=== PATIENT | female | born 1970 | race Caucasian/White ===

== ENCOUNTER → 2017-05-18 | Day surgery (SDC) | payer BC ==
[~2017-05-18] VITALS: Ht 157.5 cm; Wt 87.0 kg
[~2017-05-18] MED LIST: *MEPERIDINE 25 MG INJ VIAL PERIprocedural Use ONLY ONE; *morphine SULFATE 10 MG/ML PERIprocedure ONLY ONE; ACETAMINOPHEN/HYDROcodone 325 MG/5 MG TAB PO PRN; ACYC800T PO; ALPR0.25 PO; CHLORHEXIDINE GLUCONATE 2 % 1 PACK (2 CLOTHS) TOPICAL PRN; DEXAMETHASONE SOD PHOS 4 MG/ML VIAL IV ONE; DIFL500T PO; DO NOT ADM ANY ANTICOAGULANT DRUGS PRN; LACTATED RINGER'S 1000 ML IV PRN; LEVO500T8 PO; LIDOCAINE 1%/EPINEPHrine 1:100,000 SOLN 20 ML VIAL ONE; METOPROLOL TARTRATE 25 MG TAB PO PRN; ONDANSETRON HCL 4 MG/2 ML VIAL IV PUSH ONE; POVIDONE IODINE 5% (ANTISEPSIS KIT) 4 APPLICATIONS EACH NARE PRN; PROPOFOL 200 MG/20 ML AMP IV ONE; ROCURONIUM INJ 50 MG/5 ML SYRINGE IV PUSH ONE; SODIUM CHLORID 0.9% 500 ML IV PRN; SUGAMMADEX SODIUM 200 MG/2 ML VIAL IV PUSH ONE; TRIA.1%T TOP; TRIA37.53 PO; Z.0.NO CURRENT MEDS; ceFAZolin INJ 1,000 MG VIAL IV ONE; ceFAZolin INJ 1,000 MG VIAL ONE; metroNIDAZOLE 500 MG INJ 100 ML IV ONE
--- NOTE | 2017-05-18 11:53 | MH ---
cc: LENNY TOBIAS KETUL TOLLAND, JOHN T. M.D. PASRICHA, SUNIL P. M.D. DATE OF ADMISSION 05/18/2017 DATE OF 1970 CHIEF COMPLAINT Posterior rectal abscess. HISTORY OF PRESENT ILLNESS This patient was seen by me originally on February 01, 2017 with an abnormal finding on a CT scan. She was sent over by Dr. Tobias and Dr. Lang for a right posterior 4 cm cystic area in the right posterior position. It extended from the right posterior wall of the rectum to the right ischiorectal fat and across to the midline. I recommended conservative therapy for this. She was having no pain, no symptoms whatsoever. This was found on a CT scan for abdominal discomfort. 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 This was a stable nodule. The CT in mid April showed again a 5 cm area posterior to the lower rectum and anus. It appeared possibly cystic. For this reason she returned to Dr. Lang who referred her to Dr. Bhavya Banegas and she underwent ultrasound biopsy last Monday, about 8 days ago. About 4 days after that she developed severe rectal pain with fevers and chills and yesterday was instructed to go to the emergency department. She was seen in the emergency department at [facility] and they contacted me yesterday afternoon and I suggested that she come to my office for evaluation so I could examine her. She came this morning and a repeat CT scan that was done yesterday was reviewed which appeared to be a posterior rectal abscess. This showed an increased organization of perirectal fluid collection of concern for an abscess which was larger than previously, mildly loculated, most of this to the right of the midline. On exam in the office I could palpate tenderness in the right posterior perianal skin and digital rectal examination revealed fullness of the right posterior rectal area. The area was anesthetized with about 9 cc of 1% Xylocaine with epinephrine and incision and drainage was attempted with some blood drainage but no actual pus or full drainage of this abscess area. For this reason she is going to be admitted as an outpatient for exam under anesthesia and incision and drainage of what appears to be a right posterior rectal abscess. PAST MEDICAL HISTORY, SOCIAL HISTORY, REVIEW OF SYSTEMS Otherwise negative. ALLERGIES 1. PENICILLIN. 2. ERYTHROMYCIN. MEDICATIONS Medications include Levaquin and Flagyl at this time as well as hydrocodone, and she takes Symax Duotab. FAMILY HISTORY She does have a family history of colon cancer and colon polyps. PHYSICAL EXAMINATION GENERAL: A well-developed, well-nourished female in acute distress with anal pain. SKIN: Warm and dry. HEENT: Extraocular muscles intact. NECK: Supple. CHEST: Clear. HEART: S1, S2 is heard. ABDOMEN: Obese, soft, nontender. No masses. RECTAL: Inspection is within normal limits. Digital exam reveals tenderness and bulging in the right posterior position. Attempted incision and drainage does not reveal any purulent drainage. EXTREMITIES: Range of motion is within normal limits. NEUROLOGIC: Grossly normal. IMPRESSION Probable 5.8 cm right posterior ischiorectal abscess. PLAN Recommend incision and drainage and exam under anesthesia. I have explained all the risks and benefits to the patient. She understands and wishes to proceed. We will do this, this afternoon. MD RANDY Azevedo/MELISSA /9:55 AM /11:14 AM
[2017-05-18 14:41] LABS: AUTOMATED NEUTROPHIL # 10.6 TH/MM3 (1.8-7.7); BASOPHIL % 0.2 % (0.0-2.0); EOSINOPHIL % 0.2 % (0.0-4.0); HEMATOCRIT 37.6 % (35.0-46.0); HEMOGLOBIN 13.2 GM/DL (11.6-15.3); LYMPHOCYTE # 0.6 TH/MM3 (1.0-4.8); MEAN CELL VOLUME 90.6 FL (80.0-100.0); MEAN CORPUSCULAR HEMOGLOBIN 31.7 PG (27.0-34.0); MEAN PLATELET VOLUME 6.8 FL (7.0-11.0); MONO % 7.1 % (0.0-8.0); MONOCYTE # 0.9 TH/MM3 (0-0.9); NEUT % 87.5 % (16.0-70.0); PLATELET COUNT 387 TH/MM3 (150-450); RED BLOOD COUNT 4.14 MIL/MM3 (4.00-5.30); RED CELL DISTRIBUTION WIDTH 12.3 % (11.6-17.2); WHITE BLOOD COUNT 12.1 TH/MM3 (4.0-11.0)
[2017-05-18 17:10] VITALS: BP 126/68; PULSE 64; RESP 18; TEMP 97.8; O2SAT 99
--- NOTE | 2017-05-19 05:57 | MP ---
cc: LENNY TOBIAS KETUL TOLLAND,ROBINA MORENO M.D., M.D. DATE OF PROCEDURE 05/18/2017 PREOPERATIVE DIAGNOSIS Right posterior ischiorectal abscess. POSTOPERATIVE DIAGNOSIS Right posterior ischiorectal abscess and supralevator abscess PROCEDURE Incision and drainage of right posterior supralevator abscess ANESTHESIA General endotracheal. SURGEON Dr. Gutiérrez OPERATIVE FINDINGS This patient was originally referred to me by Dr. Lang in January of 2017. At that time she had a CT scan from December that showed a right posterior fluid collection that was in the ischiorectal space and the ischiorectal fat. She was found to have this on a CT scan done for another reason which was abdominal discomfort and that portion of the CT scan was normal. She was referred to me for evaluation of this and had no pain, no tenderness and the 3-cm collection was not palpable definitely by me. For this reason we recommended watchful waiting and she went back to her [place] and in mid-April a repeat CT scan was done which essentially showed no change, although there was some septation of this. The most likely source of something this would ordinarily be an abscess but she had no pain, no fever and no symptoms from this at all. This did not appear to be a rectal mass or tumor. Eventually she was sent by Dr. Lang to his partner, Dr. Bhavya Banegas who did an endorectal ultrasound approximately eight days ago at [facility] and did a needle biopsy of this lesion. Four days postoperatively she began having severe rectal pain and fevers and chills and she was told to go the emergency room yesterday. Yesterday evening the emergency department called me. I asked them to send her over to my office for exam with sigmoidoscopy and exam in my office and she came to my office this morning. Evaluation revealed a palpable probable abscess in the right posterior position of her lower rectoanal canal overlying her anorectal ring and superior but also some posterior induration of her skin in the right posterior position. Attempt at incision and drainage was done in the office under local and, while it was comfortable for her, I would could not enter the abscess cavity. For this reason exam under anesthesia and incision and drainage was recommended. At surgery she was in lithotomy position and the previous incision site along the anoderm was seen and there was no pus draining from this and the area of the swelling was palpable above this area on rectal exam and on anoscopy. It was felt that this was more intersphincteric and my incision was carried superiorly through the internal sphincter muscle and I entered a large 5 x 5-cm abscess cavity with a copious amount of purulent drainage. Probably 100 cc of pus was drained. Culture was taken and biopsies of the abscess wall were sent as well. This was felt to be encroaching down into the ischiorectal fossa but only minimally; it was mainly above her anorectal ring posteriorly, really supralevator, lateral to the rectum. The area was loosely packed with a 4x4 gauze. OPERATIVE TECHNIQUE The patient was placed on the table in a supine position after adequate general endotracheal anesthesia. Legs were placed in candy-cane lithotomy stirrups and the area was inspected and digital exam was done. Just proximal to her anoderm and my previous incision I could palpate this fluid collection. I went ahead and incised superiorly through the mucosa and the internal sphincter of the lower rectum at the anal verge and a copious amount of pus drained, probably 100 cc, foul-smelling and it was sent for culture and sensitivity. This was felt to be supralevator.Also portions of the abscess wall internally were sent for biopsy. The cavity was irrigated thoroughly and was not necrotic appearing and a 4x4 gauze was tucked up into the cavity and left hanging out of the anal canal and 4x4s were placed. Sponge, needle and a counts were poor as correct. The estimated blood loss was minimal. The patient tolerated the procedure well left the operating room in good condition. Zach Gutiérrez MD JMONICA/ISRA /3:55 PM /5:20 AM TERRIE
--- NOTE | 2017-05-19 23:08 | EKG ---
Date Performed: 05/18/2017 Time Performed: 14:08:03 PTAGE: 47 years EKG: Sinus rhythm NORMAL ECG NO PREVIOUS TRACING DOCTOR: Rory Walters Interpretating Date/Time 05/19/2017 23:07:50
== END | disposition home or self-care (01) ==
LOC: HSDC 13:38
PROVIDERS: ATTEND Colon & Rectal Surgery
DX: K61.3 Ischiorectal abscess (principal); K62.89 Other specified diseases of anus and rectum; B96.89 Other specified bacterial agents as the cause of diseases classified elsewhere; I10 Essential (primary) hypertension; Z88.0 Allergy status to penicillin
CPT/HCPCS: 00902; 45990; 46040; 85025; 87015; 87070; 87102; 87116; 87185; 87205; 87206; 88304; 93005; J0690; J1100; J2175; J2270; J2405; J3010; J7120; 88305